=== PATIENT | male | born 1965 | race Caucasian/White ===

== ENCOUNTER 2016-09-29 12:23 | Day surgery (SDC) | payer OTHER ==
[2016-09-28 11:45] LABS: BASOPHILS 0.5 %; BASOPHILS ABSOLUTE 0.04 10/3/uL (0.0-0.16); EOSINOPHILS 2.6 %; EOSINOPHILS ABSOLUTE 0.19 10/3/uL (0.0-0.53); HEMATOCRIT 38.7 % (40.0-51.0); HEMOGLOBIN 13.1 g/dL (13.6-17.8); IMMATURE GRANULOCYTES 0.5 %; IMMATURE GRANULOCYTES ABSOLUTE 0.04 10/3/uL (0.0-0.11); LYMPHOCYTES 29.4 %; LYMPHOCYTES ABSOLUTE 2.18 10/3/uL (0.67-4.30); MANUAL DIFF NO %; MEAN CORPUS HGB CONC 33.9 g/dL (32.0-36.0); MEAN CORPUSCULAR HEMOGLOB 28.4 pg (26.0-34.0); MEAN CORPUSCULAR VOLUME 83.9 fL (80-100); MEAN PLATELET VOLUME 10.2 fL (9.2-13.0); MONOCYTES 8.2 %; MONOCYTES ABSOLUTE 0.61 10/3/uL (0.21-1.20); NEUTROPHILS 58.8 %; NEUTROPHILS ABSOLUTE 4.35 10/3/uL (2.02-8.40); PLATELET COUNT 202 10/3/uL (150-400); RED CELL COUNT 4.61 10/6/uL (4.7-6.1); WHITE BLOOD CELLS 7.4 10/3/uL (4.5-10.5)
[2016-09-28 11:53] LABS: INTERNATIONAL NORMAL RATI 0.9 UNITS (-); PARTIAL THROMBO TIME 25.9 SEC (22.5-37.2); PROTIME (NOT ORD) 12.5 SEC (12.0-14.5)
[2016-09-28 11:59] LABS: BUN (BLOOD UREA NITROGEN) 13 MG/DL (6-23); CALCIUM, SERUM 8.8 MG/DL (8.5-10.4); CHLORIDE, SERUM 102 MMOL/L (96-112); CO2 (CARBON DIOXIDE) 26 MMOL/L (24-34); CREATININE 1.12 MG/DL (0.70-1.30); GFR AFRICAN AMERICAN 88 ML/MIN (>=60); GFR NON AFRICAN AMERICAN 76 ML/MIN (>=60); SODIUM, SERUM 140 MMOL/L (135-148)
[2016-09-28 12:02] LABS: GLUCOSE, SERUM 257 MG/DL (60-99)
--- NOTE | ~2016-09-29 | OP ---
Record Of Operation [facility] [address] [place]. 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 PROCEDURE: Cystoscopy, direct visual internal urethrotomy (bladder neck). SURGEON: Nathan Mtz M.D. ANESTHESIA: General. BLOOD LOSS: Minimal. DRAINS: 20-Danish [place] style catheter and 10 mL sterile water inflated in the balloon. INDICATION: Radha had a laparoscopic robot-assisted radical prostatectomy approximately eight weeks ago. He has developed an obstruction. I dilated him and placed a Mtz catheter in the office. FINDINGS: The bladder neck was actually fairly wide open. I suspect this was from some clumsy scar tissue that I dilated in the office earlier this week. I trimmed out a little extra scar tissue. TECHNIQUE: The patient was identified, brought to the operating room, administered general anesthetic agent by the Anesthesia Service and intubated. He was positioned in dorsal lithotomy position. The Mtz catheter was removed. Penis, groin, scrotum, and perineum were prepped and draped in the usual sterile fashion. A 20-Danish cystoscopic sheath with a 30-degree lens was used for cystourethroscopy. The anterior and bulbous urethra normal. The prostatic urethra was surgically absent. At the anastomosis, there was some decaying suture material and some scar tissue. I am able to pass the 20-Danish scope into the bladder. I surveyed the bladder with both 30 and 70-degree lens. Other than some edema at the bladder neck, there were really no other findings in the bladder. He has adequate capacity. I removed the cystoscope and inserted a visual urethrotome with a 0 degree lens. I incised the bladder neck at the 5 o'clock and 7 o'clock position. I then removed the visual urethrotome. I sounded the bladder to 28-Danish with Zaheer sounds. I then inserted a 20-Danish [place] style catheter plate. Placed a 10 mL sterile water in the balloon and connected to a leg bag for drainage and terminated the procedure. Record Of Operation [facility] [address] [place] [id number] NAME: KEITH OCONNELL : 67 STATUS : [facility] PAT#: [id number] AGE: 51 ADM/REG DATE : 09/29/16 MR#: [id number] REPORT SERV DATE: 09/29/16 DICTATED BY: NATHAN MTZ DATE: 09/29/16 REPORT STATUS : Draft TRANSCRIBED BY: STEF DATE: 09/29/16 PF/STEF Nathan Mtz M.D. / [id number] CC: Michell Jolly NP
[~2016-09-29 12:23] MED LIST: ANDRODERM5 TOP; ASAB PO; CELEXA40 MG PO; DEPAKOT500 PO; FELDENE20 MG PO; FISH-EPA1000 MG PO; GLUCPH PO; HYDROCHLOROT25 MG PO; INDE60 PO; LIPITOR20 PO; MULTIVITAMI1 PO; Multivit/Min Tab; PCET PO; PRILOSEC40 MG PO; TRAZ100 PO; VITAMIN D31000 UNIT PO
== END 2016-09-29 19:08 | disposition home or self-care (01) ==
LOC: SDC 12:23
PROVIDERS: Urology
PROC: 0T7D8ZZ Dilation of Urethra, Via Natural or Artificial Opening Endoscopic (ICD-10-PCS; principal; 2016-09-29 15:30)
DX: N32.0 Bladder-neck obstruction (principal); I10 Essential (primary) hypertension; E11.9 Type 2 diabetes mellitus without complications; G47.33 Obstructive sleep apnea (adult) (pediatric); G62.9 Polyneuropathy, unspecified; Z88.8 Allergy status to other drugs, medicaments and biological substances; Z85.46 Personal history of malignant neoplasm of prostate; Z90.79 Acquired absence of other genital organ(s); F43.10 Post-traumatic stress disorder, unspecified; Z79.82 Long term (current) use of aspirin; Z79.899 Other long term (current) drug therapy; Z79.52 Long term (current) use of systemic steroids
CPT/HCPCS: 80048; 82962; 85025; 85610; 85730; 93005; A9270-GY; J2250; J2270; J2405; J2710; J3010; Q9967